=== PATIENT | male | born 1955 | race Caucasian/White ===

== ENCOUNTER → 2020-06-08 07:11 | Outpatient (REF) | payer MEDICARE, SELFPAY | LOC: ANHLAB 07:11 | PROVIDERS: PCP Surgery Plastic and Reconstructive Surgery; Visit Provider Nurse Practitioner Family | DX: C44.329 Squamous cell carcinoma of skin of other parts of face (principal) | CPT/HCPCS: 88305; 88331 ==

== ENCOUNTER → 2020-12-12 07:39 | Outpatient (REF) | payer MEDICARE, SELFPAY | LOC: ANHLAB 07:39 | PROVIDERS: PCP Surgery Plastic and Reconstructive Surgery; Visit Provider Nurse Practitioner | DX: C44.329 Squamous cell carcinoma of skin of other parts of face (principal) | CPT/HCPCS: 88305; 88331 ==